=== PATIENT | male | born 1940 | race Caucasian/White ===

== ENCOUNTER 2017-07-28 08:12 | Outpatient (RCR) | payer MEDICARE, OTHER ==
[2017-07-31] MEDS ORDERED: PANT40TA3 PO (15:05)
[2017-07-31] MEDS ORDERED: PARO20TA5 PO (15:05)
[2017-07-31] MEDS ORDERED: FINA5TAB PO (15:05)
[2017-07-31] MEDS ORDERED: LISI30TA5 PO (15:05)
[2017-08-01] MEDS ORDERED: ACHD5005 PO (13:47)
== END 2017-08-08 09:17 | disposition home or self-care (01) ==
LOC: ONC 08:12
PROVIDERS: ATTEND Internal Medicine Hematology & Oncology
DX: C15.5 Malignant neoplasm of lower third of esophagus (principal); C77.0 Secondary and unspecified malignant neoplasm of lymph nodes of head, face and neck; C78.7 Secondary malignant neoplasm of liver and intrahepatic bile duct; I10 Essential (primary) hypertension; Z79.899 Other long term (current) drug therapy
CPT/HCPCS: 99214

== ENCOUNTER 2017-07-31 05:34 | Outpatient (CLI) | payer MEDICARE, OTHER ==
[~2017-07-31] VITALS: Ht 170.2 cm; Wt 58.5 kg
[2017-07-31] MEDS ORDERED: FINA5TAB PO (15:05)
[2017-07-31] MEDS ORDERED: PANT40TA3 PO (15:05)
[2017-07-31] MEDS ORDERED: PARO20TA5 PO (15:05)
[2017-07-31] MEDS ORDERED: LISI30TA5 PO (15:05)
[2017-08-01] MEDS ORDERED: ACHD5005 PO (13:47)
== END 2017-07-31 12:37 ==
LOC: PREOP 05:34
PROVIDERS: ATTEND Surgery
DX: Z01.818 Encounter for other preprocedural examination (principal); C15.9 Malignant neoplasm of esophagus, unspecified

== ENCOUNTER → 2017-07-31 | Outpatient (CLI) | payer MEDICARE, OTHER ==
[~2017-07-31] MED LIST: ACHD5005 PO; CATHETER FLUSH 10 ML SYR IV PRN; FINA5TAB PO; HEParin (CENTRAL IV FLUSH) 500 UNIT/5 ML SYR ONE; LISI30TA5 PO; PANT40TA3 PO; PARO20TA5 PO
--- NOTE | 2017-08-08 14:28 | Diagnostic Imaging Report ---
MUGA scan indication esophageal carcinoma The study was performed blemish patient 29.4 mCi of 9 and technetium red blood cells. There are no previous studies for for comparison. There is generalized distribution of the radiotracer throughout the cardiac system and the thoracic aorta. The ejection fraction is 67%. IMPRESSION: The ejection fraction is 67%. These results were called to the [facility]. Dictated by: Dictated on workstation # [id number]
== END ==
LOC: CARD 13:51
PROVIDERS: ATTEND Internal Medicine Hematology & Oncology
DX: C15.9 Malignant neoplasm of esophagus, unspecified (principal); Z79.899 Other long term (current) drug therapy
CPT/HCPCS: 78472

== ENCOUNTER 2017-08-01 09:56 | Day surgery (SDC) | payer MEDICARE, OTHER ==
--- NOTE | 2017-07-31 13:31 | History & Physicial ---
History of Present Illness History of Present Illness Reason for visit/HPI to undergo an Qjhrbn-s-Fpxw placement to facilitate systemic therapy to manage adenocarcinoma of the esophagus with metastasis Date of Admission 08/01/17 Date Seen by Provider: July 31, 2017 Time Seen by Provider: 13:28 I consulted on this patient on 07/31/17 13:27 Attending Physician Isidro Hernandez MD Admitting Physician Benito Perez MD Consult Allergies and Home Medications Allergies Coded Allergies: Sulfa (Sulfonamide Antibiotics) (Verified Allergy, Unknown, 07/31/17) Patient Home Medication List Home Medication List Reviewed: Yes Past Bnlmsux-Wypdew-Bniwmq Hx Patient Social History Employed/Student: retired Alcohol Beverage of Choice: Beer Surgeries Yes Respiratory No Cardiovascular Yes Hypertension Neurological No Genitourinary No Gastrointestinal Yes Musculoskeletal Yes Arthritis Endocrine History of Endocrine Disorders: No Cancer Yes Esophageal Psychosocial History of Psychiatric Problem: No Integumentary History of Skin or Integumenta: No Constitutional: no symptoms reported, malaise EENTM: no symptoms reported Respiratory: no symptoms reported Cardiovascular: no symptoms reported Gastrointestinal: see HPI Genitourinary: no symptoms reported Musculoskeletal: joint pain Skin: no symptoms reported Psychiatric/Neurological: No Symptoms Reported Physical Exam Vital Signs Capillary Refill : General Appearance: No Apparent Distress Neck: Normal Inspection Respiratory: Lungs Clear Cardiovascular: Regular Rate, Rhythm Gastrointestinal: Non Tender, Soft Extremity: Normal Inspection Neurologic/Psychiatric: Alert, Oriented x3 Skin: Warm/Dry Assessment/Plan Assessment and Plan gentleman with metastatic adenocarcinoma this are was. For Lallaw-y-Ctuu placement under ultrasound guidance using the transjugular approach. Admission Diagnosis Admission Status: Other (Same Day Surgery) ISIDRO HERNANDEZ MD July 31, 2017 1:31 pm
[~2017-08-01] VITALS: Ht 170.2 cm; Wt 58.5 kg
[~2017-08-01 09:56] MED LIST changes: -ACHD5005 PO; -CATHETER FLUSH 10 ML SYR IV PRN; -HEParin (CENTRAL IV FLUSH) 500 UNIT/5 ML SYR ONE
[2017-08-01 10:35] VITALS: BP 164/98
[2017-08-01] MEDS ORDERED: LACTATED RINGERS 1,000 ML IV PRN (10:43)
[2017-08-01] MEDS ORDERED: FAMOTIDINE 20MG/2ML IV (PEPCID) IV ONE (10:45)
[2017-08-01] MEDS ORDERED: ONDANSETRON 4 MG/2 ML (SDV) Z0FRAN IV ONE (10:45)
[2017-08-01] MEDS ORDERED: HEParin (CENTRAL IV FLUSH) 500 UNIT/5 ML SYR ONE ×2 (10:57→12:00)
[2017-08-01] MEDS ORDERED: BUP/EPI 0.5% 1:200,000 (SENSORCAINE) 30 ML VIAL ONE (10:57)
[2017-08-01] MEDS ORDERED: ceFAZolin 1,000 MG (ANCEF) VIAL ONE (11:29)
[2017-08-01] MEDS ORDERED: NS (IVPB) 100 ML ONE (11:29)
[2017-08-01] MEDS ORDERED: PROPOFOL INJECTION 50 ML IV ONE (11:30)
[2017-08-01] MEDS ORDERED: LIDOCAINE PF 2% 5 ML (XYLOCAINE) VIAL ONE (11:30)
[2017-08-01] MEDS ORDERED: fentaNYL INJECTION 100 MCG/2 ML AMP ONE (11:30)
[2017-08-01] MEDS ORDERED: DEXAMETHASONE 10 MG/ML (DECADRON) 1 ML VIAL ONE (11:30)
[2017-08-01] MEDS ORDERED: proPOfol 200 MG/20 ML (DIPRIVAN) VIAL IV ONE (11:30)
[2017-08-01] MEDS ORDERED: ONDANSETRON 4 MG/2 ML (SDV) Z0FRAN ONE (11:30)
[2017-08-01] MEDS ORDERED: 0.9% SODIUM CHLORIDE PF INJ 20 ML VIAL ONE (11:33)
--- NOTE | 2017-08-01 11:33 | Progress Note-Pre Operative ---
Pre-Operative Progress Note H&P Reviewed The H&P was reviewed, patient examined and no changes noted. Date Seen by Provider: July 31, 2017 Time Seen by Provider: 15:00 Date H&P Reviewed: August 01, 2017 Time H&P Reviewed: 11:33 Pre-Operative Diagnosis: Adenocarcinoma of esophagus ISIDRO HERNANDEZ MD August 01, 2017 11:33 am
[2017-08-01] MEDS ORDERED: ceFAZolin INJECTION 1,000 MG in NS (IVPB) 100 ML IV ONE (11:45)
[2017-08-01] MEDS ORDERED: SEVOFLURANE (ULTANE) 15 ML INHAL SOLN ONE (12:03)
[2017-08-01] MEDS ORDERED: ONDANSETRON 4 MG/2 ML (SDV) Z0FRAN IVP PRN (12:30)
[2017-08-01] MEDS ORDERED: morphine INJ 10 MG/ML 1ML (SYR OR VIAL) IVP PRN (12:30)
--- NOTE | 2017-08-01 12:57 | Diagnostic Imaging Report ---
Indication: Port-A-Cath placement. Comparison: None Findings: Single intraoperative image intensifier view of the chest was obtained during Port-A-Cath placement. Distal tip of the catheter appears to terminate just below the cavoatrial junction. Evaluation for pneumothorax is suboptimal given the fluoroscopic modality and cone-down nature of the view. Please note, interpreting radiologist was not present during the procedure. Impression: 1. Fluoroscopic guidance provided during Port-A-Cath placement. Dictated by: Dictated on workstation # [id number]
[2017-08-01 13:25] VITALS: BP 160/87
[2017-08-01] MEDS ORDERED: ACHD5005 PO (13:47)
--- NOTE | 2017-08-01 13:48 | Discharge Inst-Simple/Standard ---
Discharge Inst-Standard Discharge Medications New, Converted or Re-Newed RX: RX on Chart Patient Instructions/Follow Up Plan of Care/Instructions/FU: Dressings off in 48 hours. May use the port Activity as Tolerated: Yes Discharge Diet: No Restrictions ISIDRO HERNANDEZ MD August 01, 2017 1:48 pm
[2017-08-01 13:55] VITALS: BP 152/93
--- NOTE | 2017-08-01 14:08 | Operative Report ---
Operative Report Date of Procedure/Surgery August 01, 2017 Surgeon (s) ISIDRO HERNANDEZ MD Puncher And Fastener (s): N/A Post-Operative Diagnosis Same Procedure Performed Irijhk-w-Yete placement Description of Procedure Anesthesia Type: General Estimated blood loss (mL): Minimal Specimen(s) collected/removed none Description of the Procedure Indication for the procedure: This gentleman is due to receive systemic therapy to manage adenocarcinoma of the esophagus with metastatic disease. To facilitate this, placing an Abzphk-a-Xeza was felt to be appropriate. Informed consent was obtained after reviewing the details of the procedure and complications of bacteremia, malfunction of the catheter requiring replacement and the local wound infection. Description of the procedure: He was placed supine on the operative table and general anesthesia induced using a laryngeal mask airway. A gram of Ancef was administered intravenously as prophylaxis against wound infection. Sequential compression devices were placed around his legs, to minimize the risk of venous thrombosis. His neck and upper chest where prepared and draped in the usual sterile manner. Right internal jugular vein was localized using a 12 MHz ultrasound probe and a floppy guidewire introduced into the heart, under fluoroscopy. A subcutaneous pocket was created over the infraclavicular fossa and the Andrea catheter brought into the neck, in a retrograde fashion. It was then advanced into the heart, under fluoroscopy, using the peel-away sheath. The catheter was then pulled back to the superior vena cava and connected to the Infuse-a- Port, that had been primed with heparinized saline. I was able to aspirate and flush the system without any difficulty. The port was then secured to the pectoralis tissue using 2-0 Prolene sutures. Incision was then closed using 3-0 Vicryl for the dermal layer and 4-0 Vicryl for skin, in a subcuticular fashion. Pre-emptive analgesia was established using 0.5 percent Marcaine with epinephrine He tolerated the procedure well and was taken back to the nursing area in a stable condition, after being extubated in the operating room. Findings of the Procedure See op report Allergies and Home Medications Allergies Coded Allergies: Sulfa (Sulfonamide Antibiotics) (Verified Allergy, Unknown, 07/31/17) Home Medications Finasteride 5 Mg Tablet, 5 MG PO DAILY, (Reported) Hydrocodone Bit/Acetaminophen 1 Tab Tab, 1-2 TAB PO 4-6HR PRN for PAIN Prescribed by: ISIDRO HERNANDEZ on 08/01/17 1347 Lisinopril 30 Mg Tablet, 30 MG PO DAILY, (Reported) Pantoprazole Sodium 40 Mg Tablet.dr, 40 MG PO DAILY, (Reported) Paroxetine HCl 20 Mg Tablet, 20 MG PO DAILY, (Reported) Patient Home Medication List Home Medication List Reviewed: Yes ISIDRO HERNANDEZ MD August 01, 2017 2:08 pm
--- NOTE | 2017-08-01 14:35 | Anesthesia-General Post-Op ---
General Patient Condition Mental Status/LOC: Same as Preop Cardiovascular: Satisfactory Nausea/Vomiting: Absent Respiratory: Satisfactory Pain: Controlled Complications: Absent Post Op Complications Complications None Follow Up Care/Instructions Patient Instructions None needed. Anesthesia/Patient Condition Patient Condition Patient was seen after the procedure and he was doing well, no complaints, stable vital signs, no apparent adverse anesthesia problems. EVE CAMPUZANO DO August 01, 2017 14:35
[2017-08-01 14:40] VITALS: BP 152/93
== END 2017-08-01 14:40 | disposition home or self-care (01) ==
LOC: SDC 09:56
PROVIDERS: ATTEND Surgery
DX: C15.9 Malignant neoplasm of esophagus, unspecified (principal); C79.9 Secondary malignant neoplasm of unspecified site; I10 Essential (primary) hypertension; Z79.899 Other long term (current) drug therapy
CPT/HCPCS: 87081

== ENCOUNTER 2017-08-17 10:56 | Outpatient (RCR) | payer MEDICARE, OTHER ==
[2017-08-08 09:36] LABS: BASOPHILS # (AUTO) 0.1 10^3/uL (0.0-0.1); BASOPHILS % (AUTO) 1 % (0-10); EOSINOPHILS # (AUTO) 0.7 10^3/uL (0.0-0.3); EOSINOPHILS % (AUTO) 6 % (0-10); HEMATOCRIT 28 % (40-54); HEMOGLOBIN 9.4 G/DL (13.3-17.7); LYMPHOCYTES # (AUTO) 1.2 X 10^3 (1.0-4.0); LYMPHOCYTES % (AUTO) 11 % (12-44); MEAN CORPUSCULAR HEMOGLOBIN 33 PG (25-34); MEAN CORPUSCULAR HGB CONC 34 G/DL (32-36); MEAN CORPUSCULAR VOLUME 99 FL (80-99); MEAN PLATELET VOLUME 9.4 FL (7.4-10.4); MONOCYTES # (AUTO) 1.2 X 10^3 (0.0-1.0); MONOCYTES % (AUTO) 11 % (0-12); NEUTROPHILS # (AUTO) 8.1 X 10^3 (1.8-7.8); NEUTROPHILS % (AUTO) 72 % (42-75); PLATELET COUNT 286 10^3/uL (130-400); RED BLOOD COUNT 2.84 10^6/uL (4.35-5.85); RED CELL DISTRIBUTION WIDTH 12.8 % (10.0-14.5); WHITE BLOOD COUNT 11.3 10^3/uL (4.3-11.0)
[2017-08-08 10:04] LABS: ALANINE AMINOTRANSFERASE 18 U/L (0-55); ALBUMIN 3.5 GM/DL (3.2-4.5); ALKALINE PHOSPHATASE 124 U/L (40-136); BILIRUBIN,TOTAL 0.6 MG/DL (0.1-1.0); BUN/CREATININE RATIO 26; CALCIUM 9.5 MG/DL (8.5-10.1); CARBON DIOXIDE 25 MMOL/L (21-32); CHLORIDE 101 MMOL/L (98-107); CREATININE SERUM 0.98 MG/DL (0.60-1.30); GFR ESTIMATED > 60; GLUCOSE 99 MG/DL (70-105); POTASSIUM 4.1 MMOL/L (3.6-5.0); SODIUM 135 MMOL/L (135-145); TOTAL PROTEIN 6.7 GM/DL (6.4-8.2)
[2017-08-14 14:59] LABS: BASOPHILS % (AUTO) 0 % (0-10); EOSINOPHILS # (AUTO) 0.5 10^3/uL (0.0-0.3); EOSINOPHILS % (AUTO) 4 % (0-10); HEMATOCRIT 30 % (40-54); HEMOGLOBIN 10.1 G/DL (13.3-17.7); LYMPHOCYTES % (AUTO) 8 % (12-44); MEAN CORPUSCULAR HEMOGLOBIN 33 PG (25-34); MEAN CORPUSCULAR HGB CONC 33 G/DL (32-36); MEAN CORPUSCULAR VOLUME 98 FL (80-99); MEAN PLATELET VOLUME 10.2 FL (7.4-10.4); MONOCYTES % (AUTO) 8 % (0-12); NEUTROPHILS # (AUTO) 9.6 X 10^3 (1.8-7.8); NEUTROPHILS % (AUTO) 80 % (42-75); PLATELET COUNT 261 10^3/uL (130-400); RED BLOOD COUNT 3.09 10^6/uL (4.35-5.85); RED CELL DISTRIBUTION WIDTH 12.7 % (10.0-14.5)
[2017-08-14 15:22] LABS: ALANINE AMINOTRANSFERASE 18 U/L (0-55); ALBUMIN 3.6 GM/DL (3.2-4.5); ALKALINE PHOSPHATASE 136 U/L (40-136); BILIRUBIN,TOTAL 0.4 MG/DL (0.1-1.0); BUN/CREATININE RATIO 31; CALCIUM 9.6 MG/DL (8.5-10.1); CARBON DIOXIDE 22 MMOL/L (21-32); CHLORIDE 100 MMOL/L (98-107); CREATININE SERUM 1.03 MG/DL (0.60-1.30); GFR ESTIMATED > 60; GLUCOSE 121 MG/DL (70-105); MAGNESIUM 2.1 MG/DL (1.8-2.4); POTASSIUM 4.1 MMOL/L (3.6-5.0); SODIUM 133 MMOL/L (135-145); TOTAL PROTEIN 7.2 GM/DL (6.4-8.2)
[~2017-08-17] VITALS: Ht 170.2 cm; Wt 58.5 kg
[~2017-08-17 10:56] MED LIST changes: +ACHD5005 PO; +D5W 500 ML IV (CANCER CTR) 500 ML IV ONE; +D5W 500 ML IV (CANCER CTR) 500 ML IV SCH; +FLUOROURACIL IV SCH; +LEUCOVORIN CALCIUM IV SCH; +NS IV 1000 ML (CANCER CTR) IV SCH; +NS IV ONE; +NS IV SCH; +OXALIPLATIN 100 MG, OXALIPLATIN (GENERIC) 40 MG in D5W 250 ML IVPB (CANCER CTR) 250 ML IV SCH; +PALONOSETRON HCL 0.25 MG, DEXAMETHASONE PF INJ (CANCER C 10 MG in NS (IVPB) CANCER CENT... IV SCH; +TRASTUZUMAB IV ONE; +TRASTUZUMAB IV SCH; +[UNRECOGNIZED DRUG - OTHER] IV SCH
== END 2017-11-06 | disposition home or self-care (01) ==
LOC: ONC 10:56
PROVIDERS: ATTEND Internal Medicine Hematology & Oncology
DX: Z51.11 Encounter for antineoplastic chemotherapy (principal); C15.5 Malignant neoplasm of lower third of esophagus; C77.0 Secondary and unspecified malignant neoplasm of lymph nodes of head, face and neck; C78.7 Secondary malignant neoplasm of liver and intrahepatic bile duct; I10 Essential (primary) hypertension; Z79.899 Other long term (current) drug therapy
CPT/HCPCS: 36591; 80053; 83735; 85025; 96360; 96367; 96375; 96413; 96416; 96417; 99213